=== PATIENT | female | born 1990 | race African-American/Black ===

== ENCOUNTER 2017-04-28 04:39 | Emergency (ER) | payer OTHER ==
[~2017-04-28] VITALS: Ht 160 cm; Wt 69.8 kg
--- NOTE | ~2017-04-28 | CT71 ---
[facility] A Service of [facility] & [facility] / [facility] RADIOLOGY TEXT RESULTS PATIENT: GLENNA RAMIREZ LOCATION: [facility] : [birth year] UNIT #: [id number] AGE: [address]: Oswaldo Cameron DO SEX: F ORDER DR: [id number] [facility] [address] [place], [place] [address] [id number] E MR#: [id number] Acc #: [id number] NAME: GLENNA RAMIREZ : 1990 SEX: F STUDY DATE/TIME: 04/28/2017 8:41 UNIT: [facility] ROOM: STUDY DESCRIPTION: CT Head Wo Contrast Attending Physician: Oswaldo Cameron D.O. Ordering Physician: Oswaldo Cameron D.O. Primary Care Physician: [facility] MEDICAL IMAGING REPORT This report is preliminary unless electronic signature is present EXAM CT scan of the head without contrast INDICATION Headache, nausea, and vomiting all day. FINDINGS This CT examination was performed with one or more of the following radiation dose reduction techniques: automatic exposure control, adjustment of mA and/or kV according to patient size, and iterative reconstruction. Axial noncontrast images were obtained from the skull base to the vertex. Ventricular size and configuration are normal. There is no evidence of acute infarct or hemorrhage. There are no extra-axial fluid collections. No mass lesion or mass effect is seen. There are no skull fractures. IMPRESSION Normal noncontrast head CT. Dictated by... Pedro Timmons M.D. THIS IS AN ELECTRONICALLY VERIFIED REPORT Pedro Timmons M.D. at 04/28/2017 1:26 PM SHERRY/luis eduardo TD: 04/28/2017 11:16 JOB #: [id number] MEDICAL IMAGING REPORT Page 1 of 1 COPY
--- NOTE | ~2017-04-28 | CT2 ---
[facility] A Service of [facility] & [facility] RADIOLOGY TEXT RESULTS PATIENT: GLENNA RAMIREZ LOCATION: [facility] : [birth year] UNIT #: [id number] AGE: [address]: Oswaldo Cameron DO SEX: F ORDER DR: [id number] [facility] [address] [place], [place] [address] [id number] E MR#: [id number] Acc #: [id number] NAME: GLENNA RAMIREZ : 1990 SEX: F STUDY DATE/TIME: 04/28/2017 08:35 UNIT: [facility] ROOM: STUDY DESCRIPTION: CT Abd and Pelv W Cont Attending Physician: Oswaldo Cameron D.O. Ordering Physician: Oswaldo Cameron D.O. Primary Care Physician: [facility] MEDICAL IMAGING REPORT This report is preliminary unless electronic signature is present EXAM CT abdomen and pelvis, 04/28/2017 08:35 hours HISTORY 27-year-old woman with right lower quadrant abdominal pain for 1 day. Headache, nausea and vomiting for 1 day. COMPARISON None TECHNIQUE Dynamic helical CT images were obtained from the lung bases through the pubic symphysis. The first series excludes the lung bases and the upper liver and a second series was repeated to include this area of the liver. Sagittal and coronal reconstructions were performed. Contrast was Isovue-370, 100 mL. Total exam DLP is 944 mGy-cm. This CT exam was performed with one or more of the following radiation dose reduction techniques: automatic exposure control, adjustment of mA and/or kV according to patient size, and iterative reconstruction. FINDINGS Images through the lung bases demonstrate linear atelectasis or scar at the right base. There is a small hiatal hernia present without esophageal wall thickening. The liver, spleen, pancreas and gallbladder are normal. There is no bile duct dilatation. No adrenal lesion is seen. The kidneys enhance normally. There is a well circumscribed fat-containing lesion in the posterior medial lower pole left kidney measuring 2.8 x 3.4 x 3.5 cm and -53 Hounsfield units confirming the fat content. This is a benign lesion most likely an angiomyolipoma. [facility] A Service of [facility] & [facility] RADIOLOGY TEXT RESULTS PATIENT: GLENNA RAMIREZ LOCATION: [facility] : [birth year] UNIT #: [id number] AGE: [address]: Oswaldo Cameron DO SEX: F ORDER DR: The stomach is contracted and unopacified but appears normal. There is no small bowel distension or small bowel wall thickening. The appendix is normal. The colon is unopacified and not well distended. There is no colonic wall thickening. CT pelvis demonstrates a normal-appearing anteverted uterus. There is a small follicular cyst in the left ovary measuring 2.0 cm likely physiologic. There is no pelvic free fluid. No hernias are seen. Lumbar spine is negative. IMPRESSION 1. There are no acute findings in the abdomen or pelvis. No distension or bowel wall thickening in the small bowel or colon. The appendix is normal. 2. 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 No suspicious renal mass or stone. Dictated by... Vania Oswald M.D. THIS IS AN ELECTRONICALLY VERIFIED REPORT Vania Oswald M.D. at 04/28/2017 2:31 PM Francisco TD: 04/28/2017 12:00 JOB #: [id number] MEDICAL IMAGING REPORT Page 1 of 1 COPY
[~2017-04-28 04:39] MED LIST: BACTRIM DS TABL1 TA1 PO; EPIPEN0.3 MG/0.1 IM; LORTAB 10-5001 EACH PO; PREDNISONE PO
[2017-04-28 07:41] LABS: BASOPHIL% 0.7 % (0-2.5); DIFF IND YES; EOSINOPHIL% 0.2 % (0.0-7.0); HEMATOCRIT 37.1 % (35.0-45.0); HEMOGLOBIN 11.9 gm/dL (12.0-16.0); LYMPHOCYTE# 2.3 X10e3 (1.0-3.5); LYMPHOCYTE% 40.1 % (17.0-45.0); MEAN CELL VOLUME 89.4 FL (83-96); MEAN CORPUSCULAR HEMOGLOBIN 28.5 PG (28-34); MEAN CORPUSCULAR HGB CONC 31.9 g/dL (30-36); MEAN PLATELET VOLUME 8.5 FL (6.5-11.5); MONOCYTE# 0.5 X10e3 (0-1.0); MONOCYTE% 8.1 % (3.0-12.0); NEUTROPHIL# 2.9 X10e3 (1.5-7.1); NEUTROPHIL% 50.9 % (40-75); PLATELET COUNT 333 X10e3 (140-420); RED BLOOD COUNT 4.15 X10e (3.90-5.30); RED CELL DISTRIBUTION WIDTH 14.1 % (11.0-15.5); WHITE BLOOD COUNT 5.7 X10e3 (4.0-10.5)
[2017-04-28 07:55] LABS: ALBUMIN SERUM 4.3 g/dL (3.5-5.0); BILIRUBIN,TOTAL 0.7 mg/dL (0.2-2.0); CALCIUM SERUM 8.9 mg/dL (8.4-10.2); GLOM FILT RATE Estimated 88.2 mL/min (>60); POTASSIUM 3.4 mmol/L (3.5-5.1); PROTEIN TOTAL SERUM 8.3 g/dL (6.0-8.3)
[2017-04-28 08:01] LABS: ANISOCYTOSIS SL; PLATELET ESTIMATE NORMAL (NORMAL)
[2017-04-28 08:09] LABS: URINE SOURCE CLEAN CATCH
[2017-04-28 08:14] LABS: URINE APPEARANCE CLEAR; URINE BILIRUBIN NEG (NEG); URINE BLOOD NEG (NEG); URINE COLOR YELLOW; URINE GLUCOSE NEG (NEG); URINE KETONE NEG (NEG); URINE LEUKOCYTE ESTERASE NEG (NEG); URINE NITRATE NEG (NEG); URINE PROTEIN NEG (NEG); URINE SPECIFIC GRAVITY 1.015 (1.003-1.035); URINE UROBILINOGEN 0.2 MG/DL (NEG)
[2017-04-28 08:19] LABS: CULTURE INDICATED? NO
== END 2017-04-28 11:58 | disposition left against medical advice (07) ==
LOC: CED 04:39
PROVIDERS: Emergency Medicine
DX: R51 Headache (principal); R11.2 Nausea with vomiting, unspecified; R10.9 Unspecified abdominal pain; Z88.0 Allergy status to penicillin
CPT/HCPCS: 36415; 51701; 70450; 74177; 80053; 81003; 83690; 84703; 85025; 96361; 96374; 96375; 99284; J1200; J1885; J2550; Q9967